=== PATIENT | female | born 1995 | race Caucasian/White ===

== ENCOUNTER 2020-09-10 07:42 | Inpatient (IN) | payer MEDICAID, SELFPAY ==
[2020-09-10] VITALS (71 sets, daily range): BP systolic 111–148; BP diastolic 69–99; PULSE 69–105; RESP 16; TEMP 36.9–37.2; O2SAT 93–100; BMI 25.7
[2020-09-10 09:05] LABS: Basophils Percent Auto 0.2 % (0.2-1.2); Eosinophils Percent Auto 0.2 % (0-4.4); Hematocrit 29.8 % (37.0-47.0); Hemoglobin 9.9 g/dL (12.0-15.0); Immature Granulocyte Absolute 0.21 K/mm3 (0.00-0.031); Immature Granulocyte Percent A 1.2 % (0-0.5); Lymphocytes Absolute Auto 1.52 K/mm3 (0.9-3.2); Mean Corpuscular HGB Conc 33.2 g/dl (32-36); Mean Corpuscular Hemoglobin 28.9 pg (26-34); Mean Corpuscular Volume 87.1 fl (80-100); Mean Platelet Volume 11.8 fl (7.4-10.4); Monocytes Absolute Auto 0.7 K/mm3 (0.1-0.6); Monocytes Percent Auto 4.1 % (2.6-8.5); Neutrophils Absolute Auto 14.4 K/mm3 (1.3-6.7); Neutrophils Percent Auto 85.3 % (45.5-73.1); Platelet Count Result 270 k/mm3 (150-375); Red Blood Count 3.42 M/mm3 (4.2-5.4); White Blood Count 16.9 K/mm3 (4.5-10.0)
[2020-09-10] MEDS: LACTATED RINGERS 1,000 ML 125 ML IV CONT ×3 (09:05→13:10)
[2020-09-10] MEDS: AMPICILLIN 2 GM/NS 100 ML 2 GM/100 ML BAG IVPB (09:05)
--- NOTE | 2020-09-10 09:07 | LDADM ---
This patient, Gemma Lei, was admitted to Labor/Delivery/Recovery 109 on 09/10/20 at 07:42. Plans for labor, pain management and were discussed with patient. Patient/family oriented to hospital policies and general routines including ID bracelet, bed and alarms, visiting hours, pain management, procedures, bathroom and other care routines, personal items, smoking policy, room service/diet and guest tray routines, infant security routines, and visiting hours. Patient/Family are encouraged to report perceived risks to care and to ask questions if they do not understand what they are told or what they should do. See OBIX for further documentation.
[2020-09-10 09:33] LABS: Barbiturate Screen Urine Negative (Negative); Benzodiazepines Screen Urine Negative (Negative)
--- NOTE | 2020-09-10 09:40 | WPDANESEPP ---
Anes - Eval Pre Procedure Procedure: labor epidural Date/Time: 09/10/20 09:40 Surgeon: sachin Preop Diagnosis: pain during labor Pre Op Diagnosis: Leaking Patient Data Age: 25 Gender: F Height: 5 ft 3 in Weight: 66 kg Last Vital Signs Pulse 95 09/10/20 09:31 BP 135/80 09/10/20 09:31 Allergies Allergy/AdvReac Type Severity Reaction Status Date / Time No Known Allergies Allergy Verified 09/10/20 09:03 Home Medications Medication Instructions Recorded Confirmed Type [id number] fumarate-FA 1 tablet PO DAILY 09/10/20 09/10/20 History [] Laboratory Tests 09/10/20 09/10/20 09/10/20 08:56 08:56 08:56 WBC 16.9 K/mm3 H K/mm3 (4.5-10.0) RBC 3.42 M/mm3 L M/mm3 (4.2-5.4) Hgb 9.9 g/dL L g/dL (12.0-15.0) Hct 29.8 % L % (37.0-47.0) MCV 87.1 fl fl (80-100) MCH 28.9 pg pg (26-34) MCHC 33.2 g/dl g/dl (32-36) RDW 13.0 % % (11.5-14.5) Plt Count 270 k/mm3 k/mm3 (150-375) MPV 11.8 fl H fl (7.4-10.4) Immature Gran % (Auto) 1.2 % H % (0-0.5) Neut % (Auto) 85.3 % H % (45.5-73.1) Lymph % (Auto) 9.0 % L % (18.3-44.2) [place] % (Auto) 4.1 % % (2.6-8.5) Eos % (Auto) 0.2 % % (0-4.4) Baso % (Auto) 0.2 % % (0.2-1.2) Lymph # (Auto) 1.52 K/mm3 K/mm3 (0.9-3.2) [place] # (Auto) 0.7 K/mm3 H K/mm3 (0.1-0.6) Eos # (Auto) 0.0 K/mm3 K/mm3 (0-0.3) Baso # (Auto) 0.0 K/mm3 K/mm3 (0.0-0.1) Abs Immat Gran (auto) 0.21 K/mm3 H K/mm3 (0.00-0.031) Absolute Neuts (auto) 14.4 K/mm3 H K/mm3 (1.3-6.7) Absolute Nucleated RBC 0.0 K/mm3 K/mm3 (0.0-0.012) Nucleated RBC % 0.0 % % (0.0-0.2) Urine Opiates Screen Urine Methadone Screen Ur Barbiturates Screen Ur Phencyclidine Scrn Ur Amphetamine Screen U Benzodiazepines Scrn Urine Cocaine Screen U Cannabinoids Screen RPR Pending Hep Bs Antigen HIV 1&2 Ab/P24 Ag 4thGn Pending Rubella IgG Antibody 09/10/20 09/10/20 09/10/20 08:56 08:56 08:56 WBC RBC Hgb Hct MCV MCH MCHC RDW Plt Count MPV Immature Gran % (Auto) Neut % (Auto) Lymph % (Auto) [place] % (Auto) Eos % (Auto) Baso % (Auto) Lymph # (Auto) [place] # (Auto) Eos # (Auto) Baso # (Auto) Abs Immat Gran (auto) Absolute Neuts (auto) Absolute Nucleated RBC Nucleated RBC % Urine Opiates Screen Pending Urine Methadone Screen Pending Ur Barbiturates Screen Negative (Negative) Ur Phencyclidine Scrn Pending Ur Amphetamine Screen Pending U Benzodiazepines Scrn Negative (Negative) Urine Cocaine Screen Pending U Cannabinoids Screen Pending RPR Hep Bs Antigen Pending HIV 1&2 Ab/P24 Ag 4thGn Rubella IgG Antibody Pending : gestational age Patient hx anesthesia problems: none Family hx anesthesia problems: none [facility] Social History Social History Smoking status: Never smoker Substance use: never Gender identity (if verbalized by the patient): Female Spiritual care concerns: No Exam Day of Procedure 09/10/20 09:40 Patient weight: normal Heart: regular rate and rhythm Lungs: clear to auscultation and normal air movement Neurological: alert and oriented
[2020-09-10 09:43] LABS: Amphetamine Screen Urine Negative (Negative); Cannabinoid Screen Urine Positive (Negative); Cocaine Screen Urine Negative (Negative); Methadone Screen Urine Negative (Negative); Opiate Screen Urine Negative (Negative); Phencyclidine Screen Urine Negative (Negative)
[2020-09-10 09:56] LABS: HIV 1/2 Ab P24 Ag Result Negative (Negative)
[2020-09-10 10:04] LABS: Hepatitis B Surface Antigen Negative (Negative)
--- NOTE | 2020-09-10 12:15 | WPDOBADMIT ---
Obstetrics - Admit Note Admission Note: AROm thick meconium /-1 record reviewed. No pertinent additions to the history and/or any subsequent changes in the physical findings that are not consistent with the expected course of the were found. Additions to the history and/or subsequent changes in the physical findings follow. None.
[2020-09-10] MEDS: OXYTOCIN 30 UNITS/NS 500 ML 30 UNITS/500 ML BAG IV CONT (13:00)
[2020-09-10] MEDS: AMPICILLIN 1 GM/NS 50 ML 1 GM/50 ML BAG IVPB (13:00)
--- NOTE | 2020-09-10 14:34 | PM.IMHP ---
H&P: HPI History of Present Illness Date/Time: 09/10/20 14:34 Chief Complaint: SROM in labor Narrative: Gemma Lei is a 25 year old female here as a walk-in patient with no care. Patient states she had one visit and had an u/s at ultrasound zone. No labs done. No formal u/s. Unknown dates with LMP mid December . Here with SROM in active labor at 7 cm on arrival. UDS + marijuana and labs so far normal. PMFSH Social History Social History Smoking status: Never smoker Substance use: never Gender identity (if verbalized by the patient): Female Spiritual care concerns: No Meds Home Medications and Allergies Home Medications Medication Instructions Recorded Confirmed Type [id number] fumarate-FA 1 tablet PO DAILY 09/10/20 09/10/20 History [] Allergies Allergy/AdvReac Type Severity Reaction Status Date / Time No Known Allergies Allergy Verified 09/10/20 09:03 Vital Signs Vital Signs - 24 hr 09/10/20 08:15 09/10/20 08:30 09/10/20 08:45 Pulse Rate 74 74 81 Blood Pressure 122/76 124/81 127/86 Pulse Oximetry 09/10/20 09:00 09/10/20 09:15 09/10/20 09:31 Pulse Rate 84 79 95 Blood Pressure 129/86 136/79 135/80 Pulse Oximetry 09/10/20 09:46 09/10/20 09:50 09/10/20 09:51 Pulse Rate 75 90 97 Blood Pressure 128/87 142/94 H 145/91 H Pulse Oximetry 98 09/10/20 09:53 09/10/20 09:54 09/10/20 09:55 Pulse Rate 90 90 89 Blood Pressure 141/90 H 141/90 H 139/87 Pulse Oximetry 97 09/10/20 09:58 09/10/20 10:00 09/10/20 10:03 Pulse Rate 86 76 100 Blood Pressure 128/88 127/88 111/86 Pulse Oximetry 96 09/10/20 10:05 09/10/20 10:08 09/10/20 10:10 Pulse Rate 87 80 88 Blood Pressure 133/81 117/81 120/87 Pulse Oximetry 98 98 09/10/20 10:13 09/10/20 10:15 09/10/20 10:18 Pulse Rate 79 77 81 Blood Pressure 133/81 125/77 123/82 Pulse Oximetry 99 09/10/20 10:20 09/10/20 10:21 09/10/20 10:23 Pulse Rate 78 77 Blood Pressure 134/85 128/84 Pulse Oximetry 98 09/10/20 10:25 09/10/20 10:26 09/10/20 10:28 Pulse Rate 86 90 Blood Pressure 125/80 129/92 H Pulse Oximetry 99 09/10/20 10:30 09/10/20 10:33 09/10/20 10:35 Pulse Rate 82 84 69 Blood Pressure 126/87 121/83 119/85 Pulse Oximetry 100 99 09/10/20 10:38 09/10/20 10:40 09/10/20 10:42 Pulse Rate 77 Blood Pressure 124/69 Pulse Oximetry 99 93 09/10/20 10:45 09/10/20 10:47 09/10/20 10:50 Pulse Rate 87 Blood Pressure 114/84 Pulse Oximetry 95 96 09/10/20 10:55 09/10/20 11:00 09/10/20 11:02 Pulse Rate 82 Blood Pressure 123/86 Pulse Oximetry 97 98 97 09/10/20 11:07 09/10/20 11:12 09/10/20 11:15 Pulse Rate 71 Blood Pressure 127/89 Pulse Oximetry 98 98 09/10/20 11:17 09/10/20 11:22 09/10/20 11:27 Pulse Rate Blood Pressure Pulse Oximetry 97 98 97 09/10/20 11:30 09/10/20 11:32 09/10/20 11:37 Pulse Rate 84 Blood Pressure 122/86 Pulse Oximetry 98 96 09/10/20 11:45 09/10/20 12:00 09/10/20 12:15 Pulse Rate 79 90 72 Blood Pressure 122/77 121/83 122/86 Pulse Oximetry 09/10/20 12:30 09/10/20 12:45 09/10/20 13:00 Pulse Rate 83 85 78 Blood Pressure 123/74 118/85 130/96 H Pulse Oximetry 09/10/20 13:15 09/10/20 13:30 09/10/20 13:45 Pulse Rate 83 87 81 Blood Pressure 129/83 136/77 122/83 Pulse Oximetry 09/10/20 14:00 09/10/20 14:15 09/10/20 14:30 Pulse Rate 96 97 90 Blood Pressure 142/86 H 148/89 H 133/84 Pulse Oximetry Exam Const: General: healthy appearing and comfortable (with epidural in place) Nutritional Appearance: average body habitus GI: Inspection: normal to inspection and other (gravid) : External Female Exam: normal external appearance Speculum Exam - Vagina: normal appearance of the vagina Speculum Exam - Cervix: Other cervical findings present (complete and +2 on my arrival) H&P: Results Labs Labs: Short CBC 09/10/20 Ra
--- NOTE | 2020-09-10 14:39 | P.PCNOB_ITS ---
OB - Delivery Note Procedure Delivery date: 09/10/20 Procedure: events: No Care and Labor < 37 Weeks (suspected 36-37 predelivery) Intrapartal events: None Induction method: none Delivery monitor: external FHT and external uterine Route of delivery: Laceration Description: Periurethral and Perineal - 2nd Degree Delivery repair: vicryl (3-0) Specimen: Yes (placenta) Quantitative Blood Loss (ml): 230 Anesthesia type: Local Disposition: floor [place] Baby Date of : 09/10/20 Weeks of gestation at delivery: 36 Infant gender: Female presentation: vertex position: Right Occiput Anterior Placenta delivery description: Spontaneous cord vessel description: 3 Vessels
--- NOTE | 2020-09-10 14:41 | PM.OBDSVD ---
DS: Admitting Diagnosis Admitting Diagnosis Admitting Diagnosis: IUP unknown ?36-37 wks SROM Labor DS: Discharge Diagnosis Discharge Diagnosis (1) Active labor: Status: Acute (2) SROM (spontaneous rupture of membranes): Status: Acute (3) No care in current : Code(s): O09.30 - Supervision of with insufficient care, unspecified trimester Status: Acute (4) (normal spontaneous vaginal delivery): Code(s): O80 - Encounter for full-term uncomplicated delivery Status: Acute OB - DS: Summary OB Procedures : None OB Procedures Intrapartum: Spontaneous Vag Delivery OB Procedures: : None Peripartum Data Delivery Method: Natural Vaginal Laceration Description: Periurethral and Perineal - 2nd Degree complications: none Status at Discharge Functional status at discharge: independent ambulation Overall status at discharge: patient is progressing back to baseline Time Spent with Patient Time attestation: Total time spent providing and/or coordinating discharge services: DS: Data Data Completed and Pending Labs on day of discharge: Labs from last 24 hours 09/10/20 09/10/20 09/10/20 08:56 08:56 08:56 WBC RBC Hgb Hct MCV MCH MCHC RDW Plt Count MPV Immature Gran % (Auto) Neut % (Auto) Lymph % (Auto) [place] % (Auto) Eos % (Auto) Baso % (Auto) Lymph # (Auto) [place] # (Auto) Eos # (Auto) Baso # (Auto) Abs Immat Gran (auto) Absolute Neuts (auto) Absolute Nucleated RBC Nucleated RBC % Urine Opiates Screen Negative Urine Methadone Screen Negative Ur Barbiturates Screen Negative Ur Phencyclidine Scrn Negative Ur Amphetamine Screen Negative U Benzodiazepines Scrn Negative Urine Cocaine Screen Negative U Cannabinoids Screen Positive A RPR Hep Bs Antigen Negative HIV 1&2 Ab/P24 Ag 4thGn Rubella IgG Antibody Blood Type A Positive Antibody Screen Negative 09/10/20 09/10/20 09/10/20 08:56 08:56 08:56 WBC 16.9 H RBC 3.42 L Hgb 9.9 L Hct 29.8 L MCV 87.1 MCH 28.9 MCHC 33.2 RDW 13.0 Plt Count 270 MPV 11.8 H Immature Gran % (Auto) 1.2 H Neut % (Auto) 85.3 H Lymph % (Auto) 9.0 L [place] % (Auto) 4.1 Eos % (Auto) 0.2 Baso % (Auto) 0.2 Lymph # (Auto) 1.52 [place] # (Auto) 0.7 H Eos # (Auto) 0.0 Baso # (Auto) 0.0 Abs Immat Gran (auto) 0.21 H Absolute Neuts (auto) 14.4 H Absolute Nucleated RBC 0.0 Nucleated RBC % 0.0 Urine Opiates Screen Urine Methadone Screen Ur Barbiturates Screen Ur Phencyclidine Scrn Ur Amphetamine Screen U Benzodiazepines Scrn Urine Cocaine Screen U Cannabinoids Screen RPR Pending Hep Bs Antigen HIV 1&2 Ab/P24 Ag 4thGn Rubella IgG Antibody 15.0 Blood Type Antibody Screen 09/10/20 08:56 WBC RBC Hgb Hct MCV MCH MCHC RDW Plt Count MPV Immature Gran % (Auto) Neut % (Auto) Lymph % (Auto) [place] % (Auto) Eos % (Auto) Baso % (Auto) Lymph # (Auto) [place] # (Auto) Eos # (Auto) Baso # (Auto) Abs Immat Gran (auto) Absolute Neuts (auto) Absolute Nucleated RBC Nucleated RBC % Urine Opiates Screen Urine Methadone Screen Ur Barbiturates Screen Ur Phencyclidine Scrn Ur Amphetamine Screen U Benzodiazepines Scrn Urine Cocaine Screen U Cannabinoids Screen RPR Hep Bs Antigen HIV 1&2 Ab/P24 Ag 4thGn Negative Rubella IgG Antibody Blood Type Antibody Screen Discharge Plan Discharge Attending physician on discharge: Stephanie Brito Discharging Clinician: Mikael Mercedes Anticipated Discharge Date/Time: 09/12/20 14:43 Patient Disposition: Home, Self-Care Activity: may shower and pelvic rest Diet: regular Discharge Instructions: Education: Mom and Baby Guide Given to: Mother Follow-Up:
[2020-09-10] MEDS: OXYTOCIN 30 UNITS/NS 500 ML 30 UNITS/500 ML BAG 125 UNITS IV CONT (14:50)
[2020-09-10] MEDS: BENZOCAINE 20% AER SPR (*SP) 56 GM CAN 1 SPRAY TOPICAL (17:15)
[2020-09-10] MEDS: WITCH HAZEL 40 PADS 1 PAD TOPICAL (17:15)
--- NOTE | 2020-09-10 18:13 | OBPPTRN ---
Patient transferred to post room #287 via wheelchair. Support person present. Oriented to unit, room, information board, rooming in, admission packet and security measures. Patient verbalizes understanding.
[2020-09-10] MEDS: POLYSACCHARIDE IRON COMPLEX 150 MG CAPSULE PO (21:40)
[2020-09-11] MEDS: TETANUS,DIPHTHERIA,AC PERTUSSIS ADULT (0.5 ML) BOOSTRIX IM (04:17)
[2020-09-11 04:57] LABS: Hematocrit 25.5 % (37.0-47.0); Hemoglobin 8.5 g/dL (12.0-15.0)
--- NOTE | 2020-09-11 07:27 | WPDANLDPN2 ---
Anes-Prog Note L&D Date/Time: 09/11/20 07:27 Comfortable throughout: labor and delivery Neuraxial method: epidural Epidural/Spinal procedure site: clean & non-tender Neuro status: Neuro function grossly intact. Cardiovascular status: normal Respiratory status: normal Airway patency: baseline Mental status: baseline Post-Op hydration status: normal Vital Signs: Last Vital Signs Temp 36.9 C 09/10/20 18:30 Pulse 78 09/10/20 18:30 Resp 16 09/10/20 18:30 BP 125/85 09/10/20 18:30 Pulse Ox 99 09/10/20 18:30 Pain score (VAS): 1 I/O: Intake & Output 09/10/20 09/10/20 09/11/20 15:59 23:59 07:59 Intake Total 1999 500 Output Total 176 Balance 1999 324 Patient feedback: Patient satisfied with anesthetic care.
[2020-09-11 08:20] VITALS: BP 114/82; PULSE 72; RESP 18; TEMP 36.7
[2020-09-11] MEDS: MULTIVIT/MIN/PREN/FOL AC/IRON TABLET 1 TAB PO (09:42)
[2020-09-11] MEDS: DOCUSATE SODIUM 100 MG CAPSULE PO (09:42)
[2020-09-11] MEDS: POLYSACCHARIDE IRON COMPLEX 150 MG CAPSULE PO (09:42)
--- NOTE | 2020-09-11 12:12 | PM.OBPNVD ---
OB - PN: Subj Subjective Date/time seen: 09/11/20 12:12 doing well desires home to see baby OB - PN: Obj Data Labs CBC & Chem 7: 09/11/20 04:16 Labs: Laboratory Results - last 24 hr 09/11/20 04:16 Hgb 8.5 L Hct 25.5 L OB - PN A/P Assessment and Plan (1) (normal spontaneous vaginal delivery): Code(s): O80 - Encounter for full-term uncomplicated delivery Status: Acute (2) No care in current : Code(s): O09.30 - Supervision of with insufficient care, unspecified trimester Status: Acute Assessment and Plan: d/c home f/u in 6 weeks for pp care. Time Spent With Patient Time: Total time spent is greater than 50% in coordination of care (as documented) at patient's floor/unit and/or counseling patient: Exam GI: Other: ff below umbilicus
[2020-09-13 07:10] LABS: Rapid Plasma Reagin Non-Reactive (NonReactive)
== END 2020-09-11 12:48 | disposition home or self-care (01) | DRG 560 ==
LOC: ANHLDR 09-15 09:31 → ANHOB2 09-15 09:31
PROVIDERS: Admitting Provider Obstetrics & Gynecology Gynecology; Visit Provider Obstetrics & Gynecology
DX: O60.14X0 Preterm labor third trimester with preterm delivery third trimester, not applicable or unspecified (principal); Z37.0 Single live birth; Z3A.36 36 weeks gestation of pregnancy; O70.1 Second degree perineal laceration during delivery; O77.0 Labor and delivery complicated by meconium in amniotic fluid; O99.324 Drug use complicating childbirth; F12.90 Cannabis use, unspecified, uncomplicated
CPT/HCPCS: 36415; 80307; 84112; 85014; 85018; 85025; 86592; 86703; 86762; 86850; 86900; 86901; 87340; 90715; A9270; G0432; J0290; J2590; J2795; J7120